=== PATIENT | female | born 1965 | race Caucasian/White ===

== ENCOUNTER 2018-06-02 07:24 | Outpatient (CLI) | payer BC ==
--- NOTE | 2018-06-02 10:07 | MRI ---
MRI LUMBAR SPINE: Date: 06-02-18 Provided Clinical History: Lumbar radiculopathy. FINDINGS: Five lumbar vertebral bodies are assumed. Lumbar alignment appears normal. Vertebral body heights cathleen ear preserved. No focal concerning regional marrow signal abnormality is evident. The visualized extr aspinal soft tissues appear unremarkable with the exception of probable cyst involving superior pole of the right kidney. The conus medullaris is normal in signal and terminates at an appropriate level. L1-2: No significant central canal or foraminal narrowing apparent. L2-3: There is no significant central canal or foraminal narrowing apparent. L3-4: There is bilateral facet arthritis without significant central canal or foraminal narrowing cathleen arent. There is mild loss of disc space height. L4-5: There is bilateral facet arthritis. There is crowding of the subarticular regions bilaterally. This is somewhat more asymmetric left of midline. There is bilateral mild foraminal narrowing. There is mild loss of disc space height. L5-S1: There is advanced bilateral facet arthritis. There is no significant central canal or foramina l narrowing apparent. IMPRESSION: 1. Lower lumbar spine disc and facet degenerative change as above. POS: LUIS
== END 2018-06-02 07:25 | disposition home or self-care (01) ==
LOC: BICMRI 07:24
PROVIDERS: ATTEND Anesthesiology Pain Medicine
DX: M47.26 Other spondylosis with radiculopathy, lumbar region (principal); M51.16 Intervertebral disc disorders with radiculopathy, lumbar region
CPT/HCPCS: 72110; 72148

== ENCOUNTER 2018-06-21 09:11 | Outpatient (CLI) | payer BC | END 2018-06-21 09:12 | disposition home or self-care (01) | LOC: BICMAMMO 09:11 | PROVIDERS: ATTEND Obstetrics & Gynecology | DX: Z12.31 Encounter for screening mammogram for malignant neoplasm of breast (principal) | CPT/HCPCS: 77063; 77067 ==